=== PATIENT | male | born 1975 | race Caucasian/White ===

== ENCOUNTER 2020-03-02 22:23 | Emergency (ER) | payer MEDICARE ==
[2020-03-02 22:38] VITALS: BP 161/83; PULSE 64; RESP 18; TEMP 98
--- NOTE | 2020-03-02 22:44 | ED ---
Psych HPI - General Chief Complaint: Psychiatric Symptoms Stated Complaint: Mental health Time Seen by Provider: 03/02/20 22:26 Source: patient, EMS, RN notes reviewed, old records reviewed Mode of arrival: EMS - History of Present Illness Initial Comments: This is a 44-year-old male DF for evaluation from [place], patient is a cigarette for alcohol abuse. Patient is lucid patient's today feeling delusional not feeling himself, fatigued as well as having how his nose suicidal thoughts. Patient is very depressed patient presents DF from [place] for evaluation of psychiatric illness patient is homicidal and states he hears voices telling him to hurt people MD Complaint: feels depressed, altered mental status -: days(s) Associated Psychiatric Symptoms: depression, homicidal ideation, auditory hallucinations Quality: changing over time, getting worse Improves With: none Worsens With: none Context: significant life stressor Associated Symptoms: denies other symptoms Treatments Prior to Arrival: placed on mental health hold - Related Data Home Medications Medication Instructions Recorded Confirmed Acetaminophen [Tylenol] 650 mg PO Q4H 03/02/20 03/02/20 Albuterol Inhaler [Ventolin Hfa 1 - 2 puff INHALATION RT-Q4H PRN 03/02/20 03/02/20 Inhaler] Benztropine Mesylate [Cogentin] 1 mg PO HS@2200 03/02/20 03/02/20 Famotidine [Pepcid] 20 mg PO BID@0600,1730 03/02/20 03/02/20 Ibuprofen [Motrin] 600 mg PO Q6H PRN 03/02/20 03/02/20 Ipratropium [place] [Atrovent Hfa] 1 puff INHALATION RT-BID@0600,1730 03/02/20 03/02/20 Multivitamins, Thera [Multivitamin 1 tab PO DAILY@30 03/02/20 03/02/20 (formulary)] Thiamine [Vitamin B-1] 100 mg PO DAILY@0630 03/02/20 03/02/20 Tigan 200mg 200 mg IM Q6H PRN 03/02/20 03/02/20 Tigan 300mg Suppository 300 mg RECTAL Q6H PRN 03/02/20 03/02/20 Trimethobenzamide HCl [Tigan] 300 mg PO Q6H PRN 03/02/20 03/02/20 Zofran 2mg/Ml 4 mg IM Q6H PRN 03/02/20 03/02/20 ondansetron HCL [Zofran] 8 mg PO Q6H PRN 03/02/20 03/02/20 Allergies Allergy/AdvReac Type Severity Reaction Status Date / Time aspirin Allergy Unknown Verified 03/02/20 23:53 Fish Containing Products Allergy Unknown Verified 03/02/20 23:53 [Fish] Penicillins Allergy Unknown Verified 03/02/20 23:53 Review of Systems ROS Statement: Those systems with pertinent positive or pertinent negative responses have been documented in the HPI. ROS Other: All systems not noted in ROS Statement are negative. Past Medical History Past Medical History: Hypertension Additional Past Medical History / Comment(s): pancreatitits, HIV+ History of Any Multi-Drug Resistant Organisms: None Reported Additional Past Surgical History / Comment(s): sinus surgery Past Psychological History: Anxiety, Bipolar, Depression, PTSD, Schizoaffective Disorder Smoking Status: Current every day smoker Past Alcohol Use History: Abuse, Daily, Heavy Past Drug Use History: None Reported General Exam Limitations: no limitations General appearance: alert, in no apparent distress Head exam: Present: atraumatic, normocephalic, normal inspection Eye exam: Present: normal appearance, PERRL, EOMI. Absent: scleral icterus, conjunctival injection, periorbital swelling ENT exam: Present: normal exam, mucous membranes moist Neck exam: Present: normal inspection. Absent: tenderness, meningismus, lymphadenopathy Respiratory exam: Present: normal lung sounds bilaterally. Absent: respiratory distress, wheezes, rales, rhonchi, stridor Cardiovascular Exam: Present: regular rate, normal rhythm, normal heart sounds. Absent: systolic murmur, diastolic murmur, rubs, gallop, clicks GI/Abdominal exam: Present: soft, normal bowel sounds. Absent: distended, tenderness, guarding, rebound, rigid Extremities exam: Present: normal inspection, full ROM, normal capillary refill. Absent: tenderness, pedal edema, joint swelling, calf tenderness Back exam: Present: normal inspection Neurological exam: Present: alert, oriented X3, CN II-XII intact Psychiatric exam: Present: normal affect, normal mood Skin exam: Present: warm, dry, intact, normal color. Absent: rash Course Vital Signs 03/02/20 22:32 Temperature 98 F Pulse Rate 64 Respiratory 18 Rate Blood Pressure 161/83 O2 Sat by Pulse 99 Oximetry - Reevaluation(s) Reevaluation #1: 03/03/20 00:37 Medical records reviewed 03/03/20 00:38 Medical clear for psychiatric evaluation Reevaluation #2: 03/03/20 00:38 Patient seen here in the ER by psychiatric services Medical Decision Making - Medical Decision Making 44 male for psychiatric evaluation, patient is not homicidal currently, denies any history of suicidal thoughts or severe depression. Patient resting comfort ably with no active signs of alcohol withdrawal. Patient can be discharged back to [place] Disposition Clinical Impression: Psychosis, Drug-induced psychotic disorder Disposition: HOME SELF-CARE Condition: Fair Instructions (If sedation given, give patient instructions): Mood Disorders (ED), Alcohol Withdrawal (ED) Is patient prescribed a controlled substance at d/c from ED?: No Referrals: None,Stated [Primary Care Provider] - 1-2 days
== END 2020-03-03 01:54 | disposition home or self-care (01) ==
LOC: EC 22:23
DX: F19.951 Other psychoactive substance use, unspecified with psychoactive substance-induced psychotic disorder with hallucinations (principal); F29 Unspecified psychosis not due to a substance or known physiological condition; F17.200 Nicotine dependence, unspecified, uncomplicated; Z88.0 Allergy status to penicillin; Z88.6 Allergy status to analgesic agent; Z91.013 Allergy to seafood
CPT/HCPCS: 82075; 99285